=== PATIENT | male | born 1965 | race Caucasian/White ===

== ENCOUNTER → 2023-01-11 | Outpatient (CLI) | payer MEDICARE, OTHER ==
--- NOTE | 2023-01-11 15:30 | MR ---
EXAMINATION TYPE: MR lumbar spine wo con DATE OF EXAM: 01/11/2023 3:02 PM COMPARISON: None. CLINICAL INDICATION: Male, 57 years old with history of M54.50; Mid back pain TECHNIQUE: Multi planar, multi sequence imaging was performed utilizing: T1-weighted, T2-weighted, a nd turbo inversion recovery imaging of the lumbar spine. IV Contrast: None. FINDINGS: Alignment: The lumbar vertebral bodies have preserved heights and alignment. Cord: The conus medullaris and the distal spinal cord appear unremarkable with regards to their signa l intensity and morphology. Bones/Discs: Bone signal is within normal limits. No abnormal bony edema on inversion recovery sequen mitchell. Multilevel disc degenerative is noted and most pronounced at the T11 inferior endplate. Interver tebral disc signal is maintained. T12-L1: No evidence of significant spinal canal stenosis or neural foraminal stenosis. L1-L2: No evidence of significant spinal canal stenosis or neural foraminal stenosis. L2-L3: No evidence of significant spinal canal stenosis or neural foraminal stenosis. L3-L4: No evidence of significant spinal canal stenosis or neural foraminal stenosis. L4-L5: Disc bulge and facet joint arthropathy result in mild spinal canal and moderate right and mild left neural foraminal stenosis. L5-S1: No evidence of significant spinal canal stenosis or neural foraminal stenosis. No significant spinal canal or neural foraminal stenosis in the remainder of the visualized levels. Other findings: None. IMPRESSION: 1. No definitive evidence of disc herniation or significant spinal canal or neural foraminal stenosi s. 2. Degeneration changes worse at the T11 inferior endplate with Schmorl's nodes and osteophyte forma tion. No bony edema visualized.
== END | disposition home or self-care (01) ==
LOC: RADMRIMAIN 14:09
PROVIDERS: ATTEND Internal Medicine Critical Care Medicine
DX: M47.814 Spondylosis without myelopathy or radiculopathy, thoracic region (principal); M51.44 Schmorl's nodes, thoracic region; M25.78 Osteophyte, vertebrae
CPT/HCPCS: 72148